=== PATIENT | female | born 1990 | race Caucasian/White ===

== ENCOUNTER → 2019-08-25 11:32 | Outpatient (CLI) | payer OTHER, SELFPAY ==
--- NOTE | 2019-08-25 11:36 | XR_ITS ---
PROCEDURE: XR CHEST 2V CLINICAL HISTORY: asthma COMPARISON: No exams were available for comparison FINDINGS: The cardiomediastinal silhouette and pulmonary vascularity are within normal limits. The lungs are clear without infiltrates, suspicious nodules, or pleural effusions. There is faint calcified nodes bilaterally. No acute bony abnormalities. IMPRESSION: No acute findings. Dictated by: Dr. George Martinez MD 08/25/2019 13:[address] George Martinez MD in [place] 08/25/2019 13:28
[2019-08-25 13:02] LABS: Basophils % 0.4 % (0.1-2.0); Eosinophils # 0.1 K/mm3 (0.0-0.4); Eosinophils % 2.4 % (0.1-12.0); Hematocrit 42.8 % (37.0-47.0); Hemoglobin 13.5 g/dL (12.2-16.2); Lymphocytes # 1.6 K/mm3 (0.7-4.5); Lymphocytes % 29.5 % (10-50); Mean Corpuscular HGB Conc 31.5 g/dL (31.8-35.4); Mean Corpuscular Hemoglobin 26.6 pg (27.0-31.2); Mean Corpuscular Volume 84.5 fl (81-99); Mean Platelet Volume 8.2 fl (7.4-10.4); Monocytes # 0.3 K/mm3 (0.1-1.0); Monocytes % 5.6 % (1.7-9.3); Neutrophils # 3.3 K/mm3 (1.8-7.8); Neutrophils % 62.1 % (37.0-80.0); Platelet Count 303 K/mm3 (142-424); Red Blood Count 5.06 M/mm3 (4.20-5.40); Red Cell Distribution Width 13.2 % (11.5-17.5); White Blood Count 5.4 K/mm3 (4.8-10.8)
[2019-08-25 14:14] LABS: Alanine Aminotransferase 18 U/L (12-78); Albumin Level 3.9 gm/dL (3.4-5.0); Alkaline Phosphatase 69 U/L (46-116); Anion Gap 15.1 mEq/L (5-15); Aspartate Amino Transferase 20 U/L (15-37); Bilirubin,Total 0.5 mg/dL (0.2-1.0); Blood Urea Nitrogen 15 mg/dL (7-18); Carbon Dioxide 25 mmol/L (21.0-32.0); Chloride 99 mmol/L (98-107); Chol/HDL Ratio 2.4 (1-3.5); Cholesterol 180 mg/dL (140-200); Creatinine,Serum 0.68 mg/dL (0.55-1.02); Estimated Glomerular Filt Rate 105 ml/min (>60); GFR (African American) 127 ML/MIN (>60); Globulin 3.9 gm/dl (1.3-3.2); Glucose 80 mg/dL (74-106); HDL Cholesterol 76 mg/dL (29-89); LDL Cholesterol 97 mg/dL (0-130); Potassium 4.1 mmoL/L (3.5-5.1); Sodium 135 mmol/L (136-145); Thyroid Stimulating Hormone 1.49 uIU/ml (0.358-3.740); Total Protein,Serum 7.8 gm/dL (6.4-8.2); Triglycerides 35 mg/dL (30-200); VLDL Cholesterol 7 mg/dL (0-40)
[2019-08-25 17:15] LABS: Amphetamine/Metha Screen,Urine Negative ng/mL (<1000); Barbiturates Screen,Urine Negative ng/mL (<200); Benzodiazepines Screen,Urine Negative ng/mL (<200); Cannabinoid Screen,Urine Negative ng/mL (<50); Cocaine Screen,Urine Negative ng/mL (<300); Methadone Screen,Urine Negative ng/mL (<300); Opiate Screen,Urine Negative ng/mL (<300); Phencyclidine Screen,Urine Negative ng/mL (<25)
[2019-08-26 15:41] LABS: Vitamin D 25 Hydroxy 19.7 ng/mL (30.0-100.0)
== END ==
PROVIDERS: PCP Nurse Practitioner Family; Visit Provider Nurse Practitioner Family
DX: R53.83 Other fatigue (principal); J45.909 Unspecified asthma, uncomplicated; E66.9 Obesity, unspecified; E55.9 Vitamin D deficiency, unspecified
CPT/HCPCS: 36415; 71046; 80053; 80061; 80305; 82652; 84436; 84443; 85025

== ENCOUNTER → 2019-09-14 13:02 | Outpatient (POV) | payer OTHER, SELFPAY | PROVIDERS: Visit Provider Dermatology | DX: Z00.00 Encounter for general adult medical examination without abnormal findings (principal) ==

== ENCOUNTER → 2021-10-02 14:18 | Outpatient (CLI) | payer OTHER, SELFPAY ==
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
== END ==
PROVIDERS: PCP Physician Assistant; Visit Provider Orthopaedic Surgery
DX: S62.101A Fracture of unspecified carpal bone, right wrist, initial encounter for closed fracture (principal)
CPT/HCPCS: 73110

== ENCOUNTER → 2021-10-16 12:59 | Outpatient (CLI) | payer OTHER, SELFPAY ==
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
== END ==
PROVIDERS: PCP Physician Assistant; Visit Provider Orthopaedic Surgery
DX: S52.511A Displaced fracture of right radial styloid process, initial encounter for closed fracture (principal)
CPT/HCPCS: 73110

== ENCOUNTER 2021-10-16 13:55 | Outpatient (RCR) | payer OTHER, SELFPAY | END 2021-10-16 14:25 | disposition home or self-care (01) | LOC: OT 13:55 | PROVIDERS: Visit Provider Orthopaedic Surgery | DX: S52.511A Displaced fracture of right radial styloid process, initial encounter for closed fracture (principal) | CPT/HCPCS: 97763 ==

== ENCOUNTER → 2021-11-27 08:55 | Outpatient (CLI) | payer OTHER, SELFPAY ==
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
== END ==
PROVIDERS: PCP Physician Assistant; Visit Provider Orthopaedic Surgery
DX: S52.511A Displaced fracture of right radial styloid process, initial encounter for closed fracture (principal)
CPT/HCPCS: 73110

== ENCOUNTER → 2021-12-04 13:09 | Outpatient (CLI) | payer SELFPAY ==
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
== END ==
PROVIDERS: PCP Physician Assistant; Visit Provider Orthopaedic Surgery
DX: M25.561 Pain in right knee (principal)
CPT/HCPCS: 73564

== ENCOUNTER → 2021-12-25 12:59 | Outpatient (CLI) | payer SELFPAY ==
--- NOTE | 2021-12-25 13:03 | US_ITS ---
FINAL REPORT CLINICAL HISTORY: RT SWELLING OF LYMPH NODE-- palp area FINDINGS: US EXTREMITY, NONVASCULAR, LIMITED, ANATOMIC SPECIFIC Limited sonographic images were obtained of the right axilla. At the area of the palpable abnormality is a 2.6 cm isoechoic structure of uncertain significance. IMPRESSION: Isoechoic structure at the area of interest may represent a lipoma. Reviewed, Interpreted and Dictated by Skyler Rene III, MD Transcribed by Sudeep Kong Authenticated by Skyler Rene III, MD on 12/25/2021 04:17:53 PM [facility]
== END ==
PROVIDERS: PCP Physician Assistant
DX: R59.9 Enlarged lymph nodes, unspecified (principal)
CPT/HCPCS: 76882

== ENCOUNTER → 2022-01-01 15:15 | Outpatient (CLI) | payer SELFPAY ==
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
== END ==
PROVIDERS: PCP Physician Assistant; Visit Provider Orthopaedic Surgery
DX: M25.561 Pain in right knee (principal); G89.29 Other chronic pain; S89.91XA Unspecified injury of right lower leg, initial encounter
CPT/HCPCS: 73721

== ENCOUNTER 2022-01-11 11:00 | Outpatient (RCR) | payer OTHER, SELFPAY ==
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
--- NOTE | 2021-11-27 11:07 | HMH.RHREAS ---
Rehab Reassessment Rehab OP Re-assessment Start: 11/27/21 10:31 Freq: Status: Active Protocol: Document 11/27/21 10:32 MILKA (Rec: 11/27/21 11:06 MILKA [id number]) Electronically Signed By Ted Kelley OT 11/27/21 10:32 Rehab Re-assessment Subjective Subjective It is doing better. Objective Objective Notes Pt continues to be seen weekly to address right wrist deficits. Each session pt engages AROM and strengthening exercises at right wrist and hand. Pt is also passively ranged for manual therapy at right wrist and thumb. Modalities are provided to decrease pain/inflammation. Assessment Progress Assessment Progressing as Expected Assessment Notes Overall, pt demonstrates great progress. Pt has been released from ortho. Pt's AROM and strength have improved since initial evauation. Pt complains of her worst pain at 4/10. Pt is still wearing her wrist cock up brace at this time. Therapist provided education to start weaning herself out of the brace to continue with strengthening and range of motion. Pt verbalized understanding. Current AROM R wrist: Sup: 90 degrees Pro: 90 degrees Flex: 60 degrees Ext: [address]: 25 degrees UD: [address]-5 LT Goals Not Met See below Revised Goals LTG 2-5 Plan Plan Continue with OT plan of care at this time Frequency of Therapy 1x's a week Duration of therapy 4 more weeks Time and Billing Re-Eval Time 10 Re-Eval Billing Units 1 PHYSICIAN CERTIFICATION: I certify the specified therapy services for Jenni Lazo are required, authorized, and reviewed every 30 days.
== END 2022-01-11 11:05 | disposition home or self-care (01) ==
LOC: OT 11:00
PROVIDERS: PCP Physician Assistant; Visit Provider Orthopaedic Surgery
DX: S52.541D Smith's fracture of right radius, subsequent encounter for closed fracture with routine healing (principal)
CPT/HCPCS: 97010; 97014; 97035; 97110; 97140; 97164; 97166; G0283

== ENCOUNTER 2022-03-25 13:00 | Outpatient (RCR) | payer SELFPAY ==
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
--- NOTE | 2022-03-04 15:21 | HMH.RHREAS ---
Rehab Reassessment Rehab OP Re-assessment Start: 03/04/22 10:03 Freq: Status: Active Protocol: Document 03/04/22 10:03 MAR (Rec: 03/04/22 11:01 MAR [id number]) Electronically Signed By Monica Avila, PT 03/04/22 10:03 Rehab Re-assessment Subjective Subjective Pt states she feels she has improved 50% since starting PT with worse pain as 1-2/10 within the past week. Pt reports pain is better during prolonged standing/walking at work but continues to have pain/ popping with stair navigation. Pt reports compliance with HEP. Objective Objective Notes R knee AROM: 0-130 RLE MMT: hip strength 4/5 grossly, knee ext/flex 5/5 Stair navigation: right valgus with descending stairs Assessment Progress Assessment Progressing as Expected Assessment Notes Pt has attended 4 PT sessions consisting of LE stretching, strengthening, aerobic exercise, taping, manual therapy and modalities. Pt is only able to attend PT 1x/week due to occupation posing as a barrier to progress; however, given number of visit to date pt is progressing as expected . Pt would continue to benefit from skilled PT to assist with return to PLOF. Patient goals met ST/8 Goals Not Met Stair navigation Revised Goals n/a Plan Plan Continue POC Frequency of Therapy 1-2x/week Duration of therapy 4 weeks Time and Billing Re-Eval Time 8 Re-Eval Billing Units 1 PHYSICIAN CERTIFICATION: I certify the specified therapy services for Jenni Lazo are required, authorized, and reviewed every 30 days.
== END 2022-03-25 13:05 | disposition home or self-care (01) ==
LOC: PT 13:00
PROVIDERS: PCP Physician Assistant; Visit Provider Orthopaedic Surgery
DX: M22.41 Chondromalacia patellae, right knee (principal)
CPT/HCPCS: 97033; 97035; 97110; 97112; 97163; 97164; 97530

== ENCOUNTER 2025-03-18 15:48 | Outpatient (CLI) | payer BC, SELFPAY ==
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
--- OUTSIDE RECORDS SUMMARY | 2025-03-18 15:53 | XMS_ITS | Clinical Summary ---
Author Organization Healthcare Address [address] [place] [address] Care Team Providers Care Asset Protection Greeter Name Role Phone Nighat Jeter Primary Care Provider [phone] Allergies No known active allergies Medications albuterol (5 MG/ML) 0.5% nebulizer solution Inhale 2.5 mg. Active budesonide-formoter ol (Symbicort) 160-4.5 MCG/ACT inhaler Inhale 2 puffs. 3 Active loratadine (Claritin) 10 MG tablet Take 10 mg by mouth 1 (one) time each day. Active montelukast (Singulair) 10 MG tablet Take 10 mg by mouth 1 (one) time each day. 3 Active ondansetron ODT (Zofran-ODT) 8 MG disintegrating tablet DISSOLVE 1/2 TO 1 TABLET UNDER THE TONGUE EVERY 6 HOURS NEEDED FOR NAUSEA/VOMIT ING 3 Active Active Problems Problem Noted Date Diagnosed Date History of uterine fibroid 12/02/2022 Ovarian cyst 12/02/2022 Family History Medical History Relation Name Comments No Known Problems Father No Known Problems Mother Relation Name Status Comments Father Alive Mother Sister Alive Social History Tobacco Use Types Packs/Day Years Used Date Smoking Tobacco: Never Smokeless Tobacco: Never Tobacco Cessation:Counseling Given: Not Answered Alcohol Use Standard Drinks/Week Comments Yes 0 (1 standard drink = 0.6 oz pur e alcohol) 7 drinks/week PHQ-2 Answer Date Recorded Patient Health Questionnaire-2 Score 0 12/02/2022 PHQ-2A Answer Date Recorded Patient Health Questionnaire-2 Score 0 12/02/2022 Comments No Sex and Gender Information Value Date Recorded Sex Assigned at Not on file Legal Sex Female 1:46 PM EST Gender Identity Not on file Sexual Orientation Not on file Last Filed Vital Signs Vital Sign Reading Time Taken Comments Blood Pressure 108/71 12/02/2022 1:45 PM EDT Pulse 78 12/02/2022 1:45 PM EDT Temperature 36.4 C (97.6 F) 12/02/2022 1:45 PM EDT Respiratory Rate 14 12/02/2022 1:4 5 PM EDT Oxygen Saturation 96% 12/02/2022 1:45 PM EDT Inhaled Oxygen Concentration - - Weight 80.6 kg (177 lb 11.1 oz) 12/02/2022 1:45 PM EDT Height 160 cm (5' 3 ) 12/02/2022 1:45 PM EDT Body Mass Index 31.48 12/02/2022 1:45 PM EDT Plan of Treatment Health Maintenance Due Date Last Done Comments [facility]-HIV Screening 1992 [facility]-Hepatitis C Screening 1992 [facility]-Infant/Child/Adol SDOH Screenings 1992 [facility]-Varicella Vaccines (1 of 2 - 13+ 2-dose series) 2005 HPV Vaccines (1 - 3-dose series) 10/25/2007 [facility]- SDOH Screenings 2010 [facility]-Adult SDOH Screenings 2010 [facility]-Hepatitis B Vaccines (1 of 3 - 19+ 3-dose series) 10/25/2011 [facility]-Depression Screening 12/03/2023 12/02/2022 SAG-BMGYD-08 Vaccine ( season) 2024 06/15/2021, 11/18/2020, 10/28/2020 [facility]-Influenza Vaccine (#1) 2025 [facility]-Pap Smear 12/02/2025 12/02/2022 [facility]-Cervical Cancer Screening 12/03/2027 [facility]-HPV/Cotest 12/03/2027 12/02/2022, 12/02/2022 [facility]-DTaP,Tdap,and Td Vaccine s (2 - Td or Tdap) 04/04/2032 04/04/2022 [facility]-Zoster Vaccines (1 of 2) 2042 [facility]-Obesity Intervention Completed 12/02/2022 [facility]-HIB Vaccines Aged Out No longer e ligible based on patient's age to complete this topic [facility]-Hepatitis A Vaccines Aged Out No longer eligible based on patient's age to complete this topic [facility]-IPV Vaccines Aged Out No longer e ligible based on patient's age to complete this topic [facility]-Pneumococcal Vaccine: Pediatrics (0 to 5 Years) and At-Risk Patients (6 to 49 Years) Aged Out No longer eligible b ased on patient's age to complete this topic [facility]-Rotavirus Vaccines Aged Out No lo nger eligible based on patient's age to complete this topic Procedures Procedure Name Priority Date/Time Associated Diagnosis Comments PAP TEST - CYTOLOGY Routine 12/02/2022 2:17 PM EDT Encounter for gynecological examination without abnormal finding from Last 3 Months or Most Recently Relevant to Health Maintenance Results * Pap Test (12/02/2022 2:17 PM EDT) Case Report Cytology Case: [id number] Authorizing Provider: Nell Jeff APRN, IGLESIA Collected: 12/02/2022 1417 Ordering Location: Obstetrics & Gynecology Received: 12/03/2022 0927 First Screen: Obdulia Yadav Specimen: ThinPrep Pap Test, Liquid-Based Cervical/Vaginal, CERVICAL/VAGINAL 12/04/2022 3:12 PM EDT [facility] Interpretation NEGATIVE FOR INTRAEPITHELIAL LESION OR MALIGNANCY 12/04/2022 3:12 PM EDT [facility] at 1512 EDT Specimen Adequacy Satisfactory for evaluation; endocervical/green sformation zone component present. Slide imaged by the ThinPrep Imaging system and selected 22 hinds reviewed then full manual screening. 12/04/2022 3:12 PM EDT [facility] Cervical cytology is a screening test primarily for squamous cancers and precursors and has associated false negative and positive results. New technologies such as liquid based sampling may decrease but will not eliminate all false negative results. Regular screening and follow-up of unexplained clinical signs and symptoms are recommended to minimize false negative results. Please see the ASCCP website (www.asccp.org)fo r followup recommendations. If HPV testing was requested, correlation with the results is suggested (please call Microbiology at [phone] for results). 12/04/2022 3:12 PM [facility] Menstrual Status Unknown 12/05/19 3:12 PM EDT [facility] Contraceptive History Intrauterine device 12/04/2022 3:12 PM EDT [facility] Screening Type Routine Screen 2022 3:12 PM EDT [facility] High Risk? No 12/04/2022 3:12 PM EDT [facility] HPV Testing Requested? Request HPV Testing Regardless of Pap Test Findings 12/04/2022 3:12 PM EDT [facility] Previous Cancer History No 12/04/2022 3:12 PM EDT [facility] Clinical Information Z01.419 - Encounter for gynecological examination without abnormal finding [ICD-10-CM] 12/04/2022 3:12 PM EDT [facility] Swab Vaginal and cervical cytologic material / Unknown Non-blood Collection / Unknown 12/02/2022 2:17 PM EDT 12/03/2022 9:27 AM EDT Nell Jeff APRN, IGLESIA LAB CYTOLOGY ORDERABLES Final Result [facility] [address] [place] [address] from Last 3 Months or Most Recently Relevant to Health Maintenance Insurance Care Teams Asset Protection Greeter Relationship Specialty Start Date End Date Nighat Jeter PA [address] [facility] [address] [place] [address] [facility] - General 09/24/21
== END 2025-03-18 23:59 | disposition home or self-care (01) ==
PROVIDERS: PCP Physician Assistant; Visit Provider Physician Assistant
DX: S32.2XXA Fracture of coccyx, initial encounter for closed fracture (principal); X58.XXXA Exposure to other specified factors, initial encounter
CPT/HCPCS: 72220